=== PATIENT | male | born 1965 | race Caucasian/White ===

== ENCOUNTER 2018-10-19 02:50 | Emergency (ER) | payer OTHER ==
[2018-10-19] MEDS ORDERED: Ondansetron 4 MG/2 ML SDV IVPUSH ONE (03:15)
[2018-10-19] MEDS ORDERED: HYDROmorphone 1 MG/ML Syringe IVPUSH STA (03:15)
[2018-10-19] MEDS ORDERED: Sodium Chloride 0.9% 1,000 ML IV SCH (03:15)
--- NOTE | 2018-10-19 03:20 | EDM.PDOC ---
<Quinn Brandt - Last Filed: 10/19/18 18:03> ED HPI GENERAL MEDICAL PROBLEM - General Chief Complaint: Abdominal Pain Stated Complaint: [facility] Time Seen by Provider: 10/19/18 03:01 Source of Information: Reports: Patient, RN Notes Reviewed History Limitations: Reports: No Limitations - History of Present Illness INITIAL COMMENTS - FREE TEXT/NARRATIVE: The patient states that he developed generalized abdominal pain, nausea, vomiting, and watery diarrhea around 21:00 last night, , 10/18/2018. He describes his abdominal pain as crampy and stabbing in character. It is constant. He has not identified any modifiers. He reports that he had a subjective fever earlier yesterday, and some dysuria earlier last night. He does not recall eating any bad or spoiled food recently. None of his contacts at home or work are similarly ill, to the patient's knowledge. The recent antibiotics. No recent international travel. The patient states that he has had similar symptoms the past, but cannot remember when - it was likely years ago. No recent cough. The patient states that he did not take any [id number] home remedies to try to treat his symptoms. His last oral solid food was around 19:00 last night. The patient states that he is status post a liver transplant, for NAFLD, in January 2018, at [facility], in [place], [place]. He is on tacrolimus and CellCept. The patient lives in [place], [place], which is where his PCP is. He is in this area for work. He works for 14 days, then returns home for 7 days , then repeats. Abdomen Pain Score (Numeric/FACES): 8 - Related Data Allergies Allergy/AdvReac Type Severity Reaction Status Date / Time No Known Allergies Allergy Verified 10/19/18 02:54 Home Meds: Home Meds Aspirin [Halfprin] 81 mg PO DAILY 10/19/18 [History] Calcium Carb & Citrate/Vit D3 [Citracal + D ER] 1 tab PO BID 10/19/18 [History] Ciprofloxacin HCl [Cipro] 500 mg PO BID #12 tablet 10/19/18 [Rx] Magnesium Oxide [Magnesium] 400 mg PO BID 10/19/18 [History] Metoclopramide HCl [Reglan] 10 mg PO Q6H #10 tablet 10/19/18 [Rx] Mycophenolate Mofetil [Cellcept] 750 mg PO BID 10/19/18 [History] Ondansetron [Zofran] 4 mg BUCCAL Q6H PRN #10 tab 10/19/18 [Rx] Tacrolimus 1 g PO BID 10/19/18 [History] oxyCODONE HCl [Roxicodone] 1 - 2 tab PO Q4H PRN #20 tablet 10/19/18 [Rx] Past Medical History Gastrointestinal History: Reports: Other (See Below) (Nonalcoholic fatty liver disease (NAFLD)) - Past Surgical History GI Surgical History: Reports: Appendectomy, Hernia, Inguinal (bilateral), Other (See Below) (Liver transplant, January 2018, at [facility]) Social & Family History - Family History Family Medical History: Noncontributory - Tobacco Use Smoking Status *Q: Never Smoker Tobacco Use Within Last Twelve Months: Cigars (on occasion) - Alcohol Use Alcohol Use History: No - Recreational Drug Use Recreational Drug Use: No - Living Situation & Occupation Living situation: Reports: , with Spouse, with Family (2 kids) Occupation: Employed (Fighter Pilot) ED ROS GENERAL - Review of Systems Review Of Systems: ROS reveals no pertinent complaints other than HPI. ED EXAM, GI/ABD - Physical Exam Exam: See Below Exam Limited By: No Limitations General Appearance: Alert, WD/WN, Mild Distress (appears uncomfortable) Eyes: Bilateral: Normal Appearance, EOMI Ears: Normal External Exam, Hearing Grossly Normal Nose: Normal Inspection Throat/Mouth: Normal Inspection, Normal Lips, Normal Voice, No Airway Compromise Head: Atraumatic, Normocephalic Neck: Normal Inspection, Full Range of Motion Respiratory/Chest: No Respiratory Distress, Lungs Clear, Normal Breath Sounds, No Accessory Muscle Use Cardiovascular: Normal Peripheral Pulses, Regular Rate, Rhythm, No Edema, No Gallop, No JVD, No Murmur, No Rub GI/Abdominal Exam: Soft, No Organomegaly, No Distention, No Abnormal Bruit, No Mass, Tender (generalized, non-focal), Abnormal Bowel Sounds (diminished), Other (Obese) (Male) Exam: Deferred Rectal (Males) Exam: Deferred Back Exam: Normal Inspection, Full Range of Motion, CVA Tenderness (L). No: CVA Tenderness (R) Extremities: Normal Inspection, Normal Range of Motion, No Pedal Edema, Normal Capillary Refill Neurological: Alert, Oriented, Normal Cognition, No Motor/Sensory Deficits Psychiatric: Normal Affect Skin Exam: Warm, Dry, Intact, Normal Color, No Rash Course - Vital Signs Last Recorded V/S: Last Vital Signs Temp 36.5 C 10/19/18 02:56 Pulse 80 10/19/18 02:56 Resp 18 10/19/18 02:56 BP 141/88 H 10/19/18 02:56 Pulse Ox 99 10/19/18 02:56 - Orders/Labs/Meds Orders: Active Orders 24 hr Category Date Time Status CULTURE BLOOD [BC] Stat Lab 10/19/18 06:45 Results CULTURE BLOOD [BC] Stat Lab 10/19/18 07:00 Results Labs: Laboratory Tests 10/19/18 10/19/18 10/19/18 Range/Units 03:22 03:22 04:59 WBC 5.50 (4.23-9.07) K/mm3 RBC 5.94 (4.63-6.08) M/mm3 Hgb 16.7 (13.7-17.5) gm/L Hct 48.7 (40.1-51.0) % MCV 82.0 (79.0-92.2) fl MCH 28.1 (25.7-32.2) pg MCHC 34.3 (32.2-35.5) g/dl RDW Std Deviation 49.0 H (35.1-43.9) fL Plt Count 95 L (163-337) K/mm3 MPV 10.3 (9.4-12.3) fl Neutrophils % (Manual) 75 H (40-60) % Band Neutrophils % 13 H (0-10) % Lymphocytes % (Manual) 4 L (20-40) % Atypical Lymphs % 0 % Monocytes % (Manual) 7 (2-10) % Eosinophils % (Manual) 1 (0.8-7.0) % Basophils % (Manual) 0 L (0.2-1.2) Toxic Granulation 1+ slight Platelet Estimate Decreased Plt Morphology Comment Normal RBC Morph Comment Normal Sodium 141 (136-145) mEq/L Potassium 3.9 (3.5-5.1) mEq/L Chloride 105 (98-107) mEq/L Carbon Dioxide 26 (21-32) mEq/L Anion Gap 13.9 (5-15) BUN 25 H (7-18) mg/dL Creatinine 1.3 (0.7-1.3) mg/dL Est Cr Clr Drug Dosing TNP Estimated GFR (MDRD) 58 (>60) mL/min BUN/Creatinine Ratio 19.2 H (14-18) Glucose 151 H (74-106) mg/dL Calcium 8.8 (8.5-10.1) mg/dL Total Bilirubin 1.7 H (0.2-1.0) mg/dL AST 47 H (15-37) U/L ALT 66 H (16-63) U/L Alkaline Phosphatase 65 (46-116) U/L Total Protein 7.0 (6.4-8.2) g/dl Albumin 3.9 (3.4-5.0) g/dl Globulin 3.1 gm/dL Albumin/Globulin Ratio 1.3 (1-2) Lipase 94 (73-393) U/L Urine Color Maggy H (Yellow) Urine Appearance Slt cloudy H (Clear) Urine pH 7.5 (5.0-8.0) Ur Specific [place] 1.020 (1.005-1.030) Urine Protein 1+ H (Negative) Urine Glucose (UA) Negative (Negative) Urine Ketones Negative (Negative) Urine Occult Blood Trace-intact H (Negative) Urine Nitrite Negative (Negative) Urine Bilirubin 1+ H (Negative) Urine Urobilinogen 0.2 (0.2-1.0) Ur Leukocyte Esterase Negative (Negative) Urine RBC 0-5 (0-5) /hpf Urine WBC Not seen (0-5) /hpf Ur Epithelial Cells 0-5 (0-5) /hpf Urine Bacteria Few (FEW) /hpf Hyaline Casts 0-5 (0-5) /lpf Urine Mucus Many H (FEW) /hpf Meds: Medications Discontinued Medications Generic Name Dose Route Start Last Admin Trade Name Freq PRN Reason Stop Dose Admin Hydromorphone HCl 1 mg 10/19/18 03:15 10/19/18 03:26 Dilaudid IVPUSH 10/19/18 03:16 1 mg ONETIME STA Administration Hydromorphone HCl 1 mg 10/19/18 06:44 10/19/18 06:51 Dilaudid IVPUSH 10/19/18 06:45 1 mg ONETIME ONE Administration Sodium Chloride 1,000 mls @ 150 mls/hr 10/19/18 03:15 10/19/18 03:26 Normal Saline IV 150 mls/hr ASDIRECTED CAIT Administration Piperacillin Sod/Tazobactam 100 mls @ 200 mls/hr 10/19/18 08:00 10/19/18 08: 15 Sod 4.5 gm/ Sodium Chloride IV 200 mls/hr Q6H CAIT Administration Sodium Chloride Confirm 10/19/18 08:09 10/19/18 08:16 Normal Saline Administered 10/19/18 08:10 Not Given Dose 100 mls @ as directed .ROUTE .STK-MED ONE Metoclopramide HCl 10 mg 10/19/18 05:30 10/19/18 08:16 Reglan IVPUSH 10/19/18 05:31 Not Given ONETIME STA Metoclopramide HCl Confirm 10/19/18 05:32 10/19/18 05:54 Reglan Administered 10/19/18 05:33 Not Given Dose 10 mg .ROUTE .STK-MED ONE Ondansetron HCl 4 mg 10/19/18 03:15 10/19/18 03:26 Zofran IVPUSH 10/19/18 03:16 4 mg ONETIME ONE Administration Ondansetron HCl Confirm 10/19/18 05:31 10/19/18 05:54 Zofran Administered 10/19/18 05:32 Not Given Dose 4 mg .ROUTE .STK-MED ONE - Re-Assessments/Exams Free Text/Narrative Re-Assessment/Exam: 10/19/18 03:25 The cause of the patient's generalized abdominal pain, nausea, vomiting, and watery diarrhea is not immediately clear. He has considerable non-focal tenderness, and diminished bowel sounds. In addition, he has some left CVA tenderness and a history of dysuria earlier tonight. I have ordered a workup that included blood work, a urinalysis, and a CT scan of his abdomen and pelvis with oral and IV contrast. In the meantime, the patient will receive IV Dilaudid , IV Zofran, and IV fluid. 10/19/18 05:54 CT of the abdomen and pelvis with oral and IV contrast is read by [facility] as: 1. Status post liver transplant surgery 2. Normal appearing hepatic artery, portal vein as well as biliary anastomosis 3. Mild uday hepatis edema is noted. The significance is unclear 10/19/18 06:[address] Flora Castillo at 05:58. Since the patient's liver transplant was less than one year ago, she is concerned that his symptoms may represent early rejection. Case then discussed with a sales representative graphic art at the [facility] liver transplant facility at 06:00. She will have the Elementary Reading Tutor on-call, Dr. Padgett, call us back as soon as possible. The above was discussed with the patient. Dr. Padgett is his Elementary Reading Tutor. He is prepared to transfer back to [place], if that is determined what is necessary. 10/19/18 06:[address] Padgett, Elementary Reading Tutor at [facility], at 06:13. She is concerned that the patient may have CMV infection, which would account for his report of fever and watery diarrhea. She recommended that we send for a blood quantitative CMV by PCR. She is aware that it will probably take 48 hours to get the results. She would also like a stool C. difficile by PCR, and blood cultures. She would like us to keep the patient well hydrated. She is going to check with the patient's coordinator, to see if a recent evaluation for CMV is positive or negative, and will plan to call us back in about one hour. She is concerned, based on the patient's presentation, that he will need to be transferred back to their facility, but will make that determination when she calls us back. I notified her that we will have had a change of shift by the time she calls back, and that she will be discussing the case with Dr. Means. 10/19/18 06:23 I checked with the lab. A CMV test sent today will not likely return until 10/22/2018. The patient has not been able to provide a stool sample for us thus far. 10/19/18 07:[address] Braden Means, and care of the patient turned over to him at this time, for change of shift. Departure - Departure Time of Disposition: 09:00 Disposition: Home, Self-Care 01 Clinical Impression: Enteritis - Discharge Information Prescriptions: Ciprofloxacin HCl [Cipro] 500 mg PO BID #12 tablet Metoclopramide HCl [Reglan] 10 mg PO Q6H #10 tablet Ondansetron [Zofran] 4 mg BUCCAL Q6H PRN #10 tab PRN Reason: nausea or vomiting oxyCODONE HCl [Roxicodone] 1 - 2 tab PO Q4H PRN #20 tablet PRN Reason: Abdominal Pain Instructions: Food Choices to Help Relieve Diarrhea, Adult, Nausea and Vomiting , Adult, [id number] Referrals: PCP,Not In Area [Primary Care Provider] - Forms: ED Department Discharge Additional Instructions: Evaluation the emergency room today in regards to sudden onset of the gastroenteritis illness with nausea vomiting and diffuse abdominal pain associated with diarrhea. Concern is whether or not this is related to cytomegalovirus infection that you are prone to acting out due to liver transplant and the current immunosuppressants that you are on. The possibility of foodborne illness to cause diarrhea is certainly possible viral gastroenteritis is more likely. We are not able to get a cytomegalovirus reading until Monday this week. In the ED were treated with intravenous fluids and did receive a dose of intravenous antibiotic Zosyn. Treatment is suggested to be clear fluids such as Gatorade/Powerade 5-6 ounces sipped per hour. When hungry try soda crackers. Jell-O would be okay at any time. If hungrier later tonight try broth soup. May also try GM on toast or bread. Medications to be Reglan 10 mg every 6-8 hours necessary for relief of nausea vomiting. Roxicodone 5 mg strength one or 2 every 4-6 hours necessary for relief of abdominal cramping pain. Antibiotic to be Cipro 500 mg twice daily for the next 6 days to clear up any bacterial associated diarrhea. As discussed the plan is for you to head back to [place] you're home where he will be close to [facility] and your liver transplant team. The goal of course is to get you back home when you can arrange appropriate flights. Of note influenza screen here in the hospital was negative as well. Copies of your chart and CT report will be provided to you. <Braden Means - Last Filed: 10/20/18 07:24> Course - Re-Assessments/Exams Free Text/Narrative Re-Assessment/Exam: 10/19/18 07:57 I have just spoke with Dr. Monika Padgett reservation manager at [facility] in [place]. She feels that Mr. Palomares will require admission to hospital for IV fluids and should be started on antibiotic for possible bacterial-induced antritis since his abdomen is so sore. She she suggest good gram-negative coverage and therefore he will be receive Zosyn 4.5 mg IV. She believes that he ideally needs to be admitted for fluids and monitoring and assessment for cytomegalovirus infection. He was due for lab work today in this regard. I will discuss options with the patient as to transfer to the nearest facility that we'll be able to look after him in regards to his transplant care. He should also mentioned to Dr. Neil that he has a low-grade fever of 100 with a cough as well. Days ago. She requests influenza screen of course be carried out which will be done. Nausea is better and he is requesting a few crackers. He does have diffuse left lower quadrant abdominal tenderness still. The plan will be to try and get him on a commercial flight back to [place] today. 10/19/18 08:56 Influenza screen is negative. Patient believes that it'll take a day or so before he can make appropriate flight arrangements to get back to [place]. His will be flying up today from [place]. Therefore tentatively will place him on Zofran 4 mg sublingually every 4-6 hours needed for nausea vomiting relief. Suggest Cipro 500 mg twice a day KCl picked up a bacterial enteritis. He will have remain on clear fluid diet. Roxicodone tablets one or 2 every 4-6 hours needed for pain relief. 10/19/18 09:00 patient is completed his IV Zosyn 4.5 g IV. Plan will be to discharge him on Roxicodone tablets he has an apartment here in town he believes he can function in his apartment until he can arrange for appropriate flight home. Departure - Departure Condition: Fair - Discharge Information *PRESCRIPTION DRUG MONITORING PROGRAM REVIEWED*: Not Applicable *COPY OF PRESCRIPTION DRUG MONITORING REPORT IN PATIENT RICKY: Not Applicable
[2018-10-19] MEDS ORDERED: Metoclopramide 10 MG/2 ML SDV IVPUSH STA (05:30)
[2018-10-19] MEDS ORDERED: Ondansetron 4 MG/2 ML SDV ONE (05:31)
[2018-10-19] MEDS ORDERED: Metoclopramide 10 MG/2 ML SDV ONE (05:32)
[2018-10-19] MEDS ORDERED: HYDROmorphone 1 MG/ML Syringe IVPUSH ONE (06:44)
[2018-10-19] MEDS ORDERED: Piperacillin/Tazobactam 4.5 GM in Sodium Chloride 0.9% 100 ML IV SCH (08:00)
[2018-10-19] MEDS ORDERED: Sodium Chloride 0.9% 100 ML ONE (08:09)
--- NOTE | 2018-10-19 10:07 | CT ---
CT abdomen and pelvis Technique: Multiple axial sections were obtained from above the dome of the diaphragm inferiorly through the pubic symphysis. Intravenous and oral contrast was utilized. Delayed images also obtained through the abdomen and pelvis. Small portion of the visualized lung bases show a small subpleural nodule within the left base within the lingula measuring approximately 5 mm. This appears calcified compatible with granuloma. No acute abnormality is seen within the lung bases. Spleen is enlarged. Liver shows no focal parenchymal abnormality. Several surgical clips are seen around the junction of the inferior vena cava into the intrahepatic portion. Normal opacification of the portal veins are noted. Superior mesenteric vein appears patent into the liver. Haziness is noted within the uday hepatis possibly due to change from previous surgery. Adrenal glands show no nodule. Kidneys show symmetric contrast enhancement. Small nonobstructing stone noted within the lower left kidney. Delayed images show contrast excretion into both ureters and bladder. Liver shows no focal abnormality. Aorta shows no aneurysm. Surgical clips seen presumably from previous appendectomy. No pelvic mass or adenopathy is seen. Small fat-containing left inguinal hernia is noted. No free fluid or other inflammatory change is seen. Bone window settings were reviewed which show degenerative change within the spine most severe at L5-S1. Impression: 1. Previous liver transplant. Mild haziness within the uday hepatis most likely residual from previous surgery. Vascular enhancement of the liver appears within normal limits. 2. Splenomegaly. 3. Small nonobstructing calculus within the lower left kidney. 4. Other incidental findings. Nothing acute is appreciated. Diagnostic code #3 Agree with preliminary report issued by [employer], preliminary report finalized on 10/19/18, 6:50 AM Central Time
== END 2018-10-19 09:41 | disposition home or self-care (01) ==
LOC: JD.ED 02:50
DX: K52.9 Noninfective gastroenteritis and colitis, unspecified (principal); Z79.82 Long term (current) use of aspirin
CPT/HCPCS: 36415; 74177; 80053; 81001; 83690; 85007; 85027; 86644; 86645; 87040; 87804; 96361; 96365; 96375; 96376; 99285; J1170; J2405; J2543; J7030; J7040; 87496; 99284